=== PATIENT | female | born 1930 | race Caucasian/White ===

== ENCOUNTER 2018-09-19 18:26 | Emergency (ER) | payer MEDICARE, BC ==
--- NOTE | 2018-09-19 19:57 | EDM.PDOC ---
ED HPI GENERAL MEDICAL PROBLEM - General Stated Complaint: HEADACHE,DISORIENTATED Time Seen by Provider: 09/19/18 18:42 Source of Information: Reports: Patient, Family History Limitations: Reports: No Limitations - History of Present Illness INITIAL COMMENTS - FREE TEXT/NARRATIVE: 87 y.o.w.f with a H/O cardiac arrest 20 years ago-since that time on Coumadin- came to the ed because of intermittent word finding difficulties and confusion, which is a new event. Those symptoms started at 2 pm today. No N/V/D, No ataxia , Pt was walking to the ED with a walker. FN test nl No other acute medical issue BP 204/83 RR 18 Pulse ox 96% on RA Temp 36.8 Puls 72 Onset Date: 09/19/18 Onset Time: 14:00 Duration: Hour(s):, Intermittent Location: Reports: Head Quality: Reports: Other (word finding difficulties) Improves with: Reports: None Worsens with: Reports: None Context: Reports: Other (pt was on the phone with somebody at 2 pm and could not find the "right worse and was confused" lasting seconds. ) Frontal headache Pain Score (Numeric/FACES): 3 - Related Data Allergies Allergy/AdvReac Type Severity Reaction Status Date / Time No Known Allergies Allergy Verified 09/19/18 19:07 Home Meds: Home Meds Losartan [Cozaar] 25 mg PO DAILY 09/19/18 [History] Metoprolol Succinate [Toprol XL] 200 mg PO DAILY 09/19/18 [History] Multivitamin [Multivitamins] 1 each PO DAILY 09/19/18 [History] Oxybutynin [Oxybutynin ER] 10 mg PO DAILY 09/19/18 [History] Warfarin Sodium [Jantoven] 5 mg MOWETHFR 09/19/18 [History] Warfarin Sodium [Jantoven] 7.5 mg SUTUSA 09/19/18 [History] ED ROS GENERAL - Review of Systems Review Of Systems: See Below Constitutional: Reports: No Symptoms HEENT: Reports: No Symptoms Respiratory: Reports: No Symptoms Cardiovascular: Reports: No Symptoms Endocrine: Reports: No Symptoms GI/Abdominal: Reports: No Symptoms : Reports: No Symptoms Musculoskeletal: Reports: No Symptoms Skin: Reports: No Symptoms Neurological: Reports: Trouble Speaking (word finding difficulties ), Change in Speech Psychiatric: Reports: No Symptoms Hematologic/Lymphatic: Reports: No Symptoms Immunologic: Reports: No Symptoms ED EXAM, NEURO - Physical Exam Exam: See Below Exam Limited By: No Limitations General Appearance: Alert, WD/WN, Mild Distress Eye Exam: Bilateral Eye: Normal Inspection Ears: Normal External Exam Nose: Normal Inspection, Normal Mucosa Throat/Mouth: Normal Inspection, Normal Lips, Normal Voice, No Airway Compromise Head Exam: Atraumatic, Normocephalic Neck: Normal Inspection, Supple, Non-Tender, Full Range of Motion Respiratory/Chest: No Respiratory Distress, Lungs Clear, Normal Breath Sounds, No Accessory Muscle Use, Chest Non-Tender Cardiovascular: Normal Peripheral Pulses, Regular Rate, Rhythm GI/Abdominal: Normal Bowel Sounds, Soft, Non-Tender, No Organomegaly (Female) Exam: Deferred Rectal (Female) Exam: Deferred Neurological: Alert, Normal Mood/Affect, Normal Dorsiflexion, CN II-XII Intact, Normal Plantar Flexion, Normal Reflexes, Abnormal Gait (walks with walker) Back Exam: Normal Inspection, Full Range of Motion Extremities: Normal Inspection, Normal Range of Motion, Normal Capillary Refill Psychiatric: Normal Affect, Normal Mood Skin Exam: Warm, Dry, Intact, Normal Color, No Rash EKG INTERPRETATION EKG Date: 09/19/18 Time: 21:00 Rhythm: NSR Rate (Beats/Min): 72 [place]: Normal P-Wave: Present QRS: Normal ST-T: Normal QT: Normal Course - Vital Signs Text/Narrative:: 87 y.o.w.f with a H/O cardiac arrest 20 years ago-since that time on Coumadin- came to the ed because of intermittent word finding difficulties and confusion, which is a new event. Those symptoms started at 2 pm today. No N/V/D, No ataxia , Pt was walking to the ED with a walker. FN test nl No other acute medical issue BP 204/83 RR 18 Pulse ox 96% on RA Temp 36.8 Puls 72. DNR/DNI discussed with patient and family PE: WNWD W F with intermittent word finding difficulties since 2 pm today, INR is 4.56 (on Coumadin S/P cardiac arrest) No focal neurological deficit Labs: CBC nl Na 134 K 3.9 GFR > 60 INR 4.56 Imaging: CXR: NAD EKG: NSR Impression: TIA vs CVA, UTI, HTN Tx: Levoquine 8.56 pm Consultation: DR. Jean, Neurologist [facility]: Needs Doppler of the carotis and vertebral vessels and MRI, would accept pt for transfer 9.05 pm Consultation: Dr. Dale, Hospitalist: Accepted the pt for transfere and further care Reexam: improved. BP 143/74 then 183/87 Labetolol (5mg) was given which brought the BP to 163/83 (manual per nurse), EMS was advised to give fentanyl for HTN above SBP 165. Plan: Transfer to [facility] Last Recorded V/S: Last Vital Signs Temp 36.8 C 09/19/18 21:30 Pulse 78 09/19/18 22:45 Resp 18 09/19/18 22:45 BP 162/89 H 09/19/18 22:45 Pulse Ox 99 09/19/18 22:45 - Orders/Labs/Meds Labs: Laboratory Tests 09/19/18 09/19/18 09/19/18 Range/Units 18:55 18:55 18:55 WBC 7.4 (4.5-12.0) X10-3/uL RBC 4.91 (3.23-5.20) x10(6)uL Hgb 15.0 (11.5-15.5) g/dL Hct 44.3 (30.0-51.3) % MCV 90.3 (80-96) fL MCH 30.5 (27.7-33.6) pg MCHC 33.7 (32.2-35.4) g/dL RDW 12.9 (11.5-15.5) % Plt Count 199 (125-369) X10(3)uL MPV 8.2 (7.4-10.4) fL Neut % (Auto) 81.3 (46-82) % Lymph % (Auto) 8.6 L (13-37) % [place] % (Auto) 7.0 (4-12) % Eos % (Auto) 3 (1.0-5.0) % Baso % (Auto) 0 (0-2) % Neut # (Auto) 6.1 (1.6-8.3) # Lymph # (Auto) 0.6 (0.6-5.0) # [place] # (Auto) 0.5 (0.0-1.3) # Eos # (Auto) 0.2 (0.0-0.8) # Baso # (Auto) 0.0 (0.0-0.2) # PT 43.6 H* (8.7-11.1) INR 4.56 H* (0.89-1.13) Sodium 134 L (135-145) mmol/L Potassium 3.9 (3.5-5.3) mmol/L Chloride 97 L (100-110) mmol/L Carbon Dioxide 31 (21-32) mmol/L BUN 17 (7-18) mg/dL Creatinine 0.7 (0.55-1.02) mg/dL Est Cr Clr Drug Dosing 56.10 mL/min Estimated GFR (MDRD) > 60 (>60) BUN/Creatinine Ratio 24.3 H (9-20) Glucose 125 H (80-116) mg/dL Lactic Acid (0.4-2.2) mmol/L Calcium 9.6 (8.6-10.2) mg/dL Urine Color (YELLOW) Urine Appearance (CLEAR) Urine pH (5.0-6.5) Ur Specific [place] (1.010-1.025) Urine Protein (NEGATIVE) mg/dL Urine Glucose (UA) (NEGATIVE) mg/dL Urine Ketones (NEGATIVE) mg/dL Urine Occult Blood (NEGATIVE) Urine Nitrite (NEGATIVE) Urine Bilirubin (NEGATIVE) Urine Urobilinogen (NEGATIVE) mg/dL Ur Leukocyte Esterase (NEGATIVE) Urine RBC (0) Urine WBC (0) Ur Squamous Epith Cells (NS,R,O) Urine Bacteria (NS) 09/19/18 09/19/18 Range/Units 18:55 20:36 WBC (4.5-12.0) X10-3/uL RBC (3.23-5.20) x10(6)uL Hgb (11.5-15.5) g/dL Hct (30.0-51.3) % MCV (80-96) fL MCH (27.7-33.6) pg MCHC (32.2-35.4) g/dL RDW (11.5-15.5) % Plt Count (125-369) X10(3)uL MPV (7.4-10.4) fL Neut % (Auto) (46-82) % Lymph % (Auto) (13-37) % [place] % (Auto) (4-12) % Eos % (Auto) (1.0-5.0) % Baso % (Auto) (0-2) % Neut # (Auto) (1.6-8.3) # Lymph # (Auto) (0.6-5.0) # [place] # (Auto) (0.0-1.3) # Eos # (Auto) (0.0-0.8) # Baso # (Auto) (0.0-0.2) # PT (8.7-11.1) INR (0.89-1.13) Sodium (135-145) mmol/L Potassium (3.5-5.3) mmol/L Chloride (100-110) mmol/L Carbon Dioxide (21-32) mmol/L BUN (7-18) mg/dL Creatinine (0.55-1.02) mg/dL Est Cr Clr Drug Dosing mL/min Estimated GFR (MDRD) (>60) BUN/Creatinine Ratio (9-20) Glucose (80-116) mg/dL Lactic Acid 1.4 (0.4-2.2) mmol/L Calcium (8.6-10.2) mg/dL Urine Color Yellow (YELLOW) Urine Appearance Slightly cloudy (CLEAR) Urine pH 7.0 H (5.0-6.5) Ur Specific [place] 1.010 (1.010-1.025) Urine Protein Negative (NEGATIVE) mg/dL Urine Glucose (UA) Normal (NEGATIVE) mg/dL Urine Ketones Negative (NEGATIVE) mg/dL Urine Occult Blood Large H (NEGATIVE) Urine Nitrite Positive H (NEGATIVE) Urine Bilirubin Negative (NEGATIVE) Urine Urobilinogen Normal (NEGATIVE) mg/dL Ur Leukocyte Esterase Moderate H (NEGATIVE) Urine RBC 20-30 H (0) Urine WBC 30-40 H (0) Ur Squamous Epith Cells Few H (NS,R,O) Urine Bacteria Many H (NS) Meds: Medications Discontinued Medications Generic Name Dose Route Start Last Admin Trade Name Freq PRN Reason Stop Dose Admin Labetalol HCl 5 mg 09/19/18 22:22 09/19/18 22:26 Normodyne IVPUSH 09/19/18 22:23 5 mg ONETIME ONE Administration Protocol Levofloxacin 500 mg 09/19/18 21:01 09/19/18 21:27 Levaquin PO 09/19/18 21:02 500 mg ONETIME ONE Administration Sodium Chloride 10 ml 09/19/18 22:07 09/19/18 22:12 Saline Flush FLUSH 10 ml ASDIRECTED PRN Administration Keep Vein Open Departure - Departure Time of Disposition: 22:00 Disposition: DC/Tfer to Acute Hospital 02 Condition: Fair Clinical Impression: TIA (transient ischemic attack) - Discharge Information Referrals: Jack Shukla MD [Primary Care Provider] - Forms: ED Department Discharge
[2018-09-19] MEDS ORDERED: Levofloxacin 500 MG Tab PO ONE (21:01)
[2018-09-19] MEDS ORDERED: Sodium Chloride 0.9% 10 ML Syringe FLUSH PRN (22:07)
[2018-09-19] MEDS ORDERED: Labetalol 20 MG/4 ML Syringe IVPUSH ONE (22:22)
== END 2018-09-19 22:50 ==
LOC: FB.ED 18:26
DX: G45.9 Transient cerebral ischemic attack, unspecified (principal); I10 Essential (primary) hypertension; N39.0 Urinary tract infection, site not specified; Z79.899 Other long term (current) drug therapy
CPT/HCPCS: 36415; 70450; 71045; 80048; 81001; 83605; 85025; 85610; 87086; 87088; 87186; 93005; 93010; 96374; 99285; A9270; J3490

== ENCOUNTER 2019-03-18 16:59 | Emergency (ER) | payer MEDICARE, BC ==
[2019-03-18] MEDS ORDERED: Sodium Chloride 0.9% 10 ML Syringe FLUSH PRN (17:34)
[2019-03-18] MEDS ORDERED: Sodium Chloride 0.9% 1,000 ML IV ONE (17:43)
--- NOTE | 2019-03-18 17:49 | EDM.PDOC ---
ED HPI GENERAL MEDICAL PROBLEM - General Chief Complaint: Syncope Stated Complaint: FALL Time Seen by Provider: 03/18/19 17:44 Source of Information: Reports: Patient, EMS, Family History Limitations: Reports: No Limitations - History of Present Illness INITIAL COMMENTS - FREE TEXT/NARRATIVE: Patient had a ground level fall sometime last night at home and was found by family laying on the floor surrounded by stool and urine today at 1600. Patient doesn't remember the circumstances of the fall, but states she was unable to get up, she lives alone. Denies focal weakness, headache, neck pain, cough, chest pain, fevers, chills, abdominal pain, pelvic pain or extremity pain. Onset Date: 03/17/19 - Related Data Allergies Allergy/AdvReac Type Severity Reaction Status Date / Time No Known Allergies Allergy Verified 03/18/19 18:07 Home Meds: Home Meds Losartan [Cozaar] 25 mg PO DAILY 09/19/18 [History] Metoprolol Succinate [Toprol XL] 200 mg PO DAILY 09/19/18 [History] Multivitamin [Multivitamins] 1 each PO DAILY 09/19/18 [History] Oxybutynin [Oxybutynin ER] 10 mg PO DAILY 09/19/18 [History] Warfarin Sodium [Jantoven] 5 mg MOWETHFR 09/19/18 [History] Warfarin Sodium [Jantoven] 7.5 mg SUTUSA 09/19/18 [History] Past Medical History Cardiovascular History: Reports: Blood Clots/VTE/DVT, Hypertension, Prior Cardiac Arrest. 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: Endocrine/Metabolic History: Reports: Obesity/BMI 30+ Hematologic History: Reports: Anticoagulation Therapy Dermatologic History: Reports: Eczema - Infectious Disease History Infectious Disease History: Reports: Chicken Pox, Measles - Past Surgical History HEENT Surgical History: Reports: Adenoidectomy, Cataract Surgery, Eye Surgery, Tonsillectomy Other HEENT Surgeries/Procedures: bilat cataract, bilat cornera transplant GI Surgical History: Reports: Appendectomy, Cholecystectomy, Colonoscopy Female Surgical History: Reports: Hysterectomy, Salpingo-Oophorectomy Endocrine Surgical History: Reports: None Musculoskeletal Surgical History: Reports: Knee Replacement Other Musculoskeletal Surgeries/Procedures:: bilat knee replacement Social & Family History - Family History Family Medical History: Noncontributory - Tobacco Use Smoking Status *Q: Never Smoker - Caffeine Use Caffeine Use: Reports: Coffee - Alcohol Use Alcohol Use History: No ED ROS GENERAL - Review of Systems Review Of Systems: ROS reveals no pertinent complaints other than HPI. - Physical Exam Exam: See Below Exam Limited By: No Limitations General Appearance: Alert, WD/WN, No Apparent Distress Ears: Normal External Exam Nose: Normal Inspection Throat/Mouth: Other (dry oropharynx) Head Exam: Normocephalic, Other (small ecchymosis to forehead) Neck: Non-Tender Respiratory/Chest: No Respiratory Distress, Lungs Clear, Normal Breath Sounds Cardiovascular: Regular Rate, Rhythm, No Murmur, No Rub GI/Abdominal: Soft, Non-Tender Neuro Exam (Abbreviated): Alert, CN II-XII Intact, Normal Cognition, No Motor/ Sensory Deficits, Other (GCS 15, non focal exam) Back Exam: Full Range of Motion, Other (mild erythema to bilateral buttocks) Extremities: Normal Range of Motion, Normal Capillary Refill, Other (ecchymosis and mild tenderness to dorsum of right foot) Psychiatric: Normal Affect, Normal Mood Skin Exam: Warm, Dry, Intact EKG INTERPRETATION EKG Date: 03/18/19 Time: 18:15 Rhythm: NSR Rate (Beats/Min): 86 [place]: Normal P-Wave: Present QRS: Normal ST-T: Normal QT: Normal Comparison: No Change (09/19/18) Course - Vital Signs Last Recorded V/S: Last Vital Signs Temp 37.6 C 03/18/19 16:59 Pulse 94 03/18/19 16:59 Resp 18 03/18/19 16:59 BP 162/111 H 03/18/19 16:59 Pulse Ox 99 03/18/19 16:59 - Orders/Labs/Meds Orders: Active Orders 24 hr Category Date Time Status EKG Documentation Completion [RC] ASDIRECTED Care 03/18/19 17:30 Active Mohan Catheter Insertion [Insert Urinary Catheter] [OM. Care 03/18/19 18:00 Ordered PC] Q24H Urinary Catheter Assessment [RC] QSHIFT Care 03/18/19 17:49 Active CXR [Chest 1V Frontal] [CR] Stat Exams 03/18/19 17:47 Taken Cervical Spine wo Cont [CT] Stat Exams 03/18/19 17:30 Taken Foot Comp Min 3V Rt [CR] Stat Exams 03/18/19 17:52 Taken Head wo Cont [CT] Stat Exams 03/18/19 17:30 Taken CULTURE BLOOD [BC] Urgent Lab 03/18/19 17:10 Received CULTURE BLOOD [BC] Urgent Lab 03/18/19 17:20 Results CULTURE URINE [RM] Stat Lab 03/18/19 18:30 Received Aspirin Med 03/18/19 18:45 Active 162 mg PO DAILY Sodium Chloride 0.9% [Normal Saline] 1,000 ml Med 03/18/19 17:43 Active IV .BOLUS Sodium Chloride 0.9% [Saline Flush] Med 03/18/19 17:34 Active 10 ml FLUSH ASDIRECTED PRN Blood Culture x2 Reflex Set [OM.PC] Urgent Oth 03/18/19 17:30 Ordered Saline Lock Insert [OM.PC] Routine Oth 03/18/19 17:34 Ordered EKG 12 Lead [EK] Stat Ther 03/18/19 17:29 Ordered Medication Orders Aspirin (Aspirin) 162 mg PO DAILY COURTNEY Last Admin: 03/18/19 18:40 Dose: 162 mg Sodium Chloride (Normal Saline) 1,000 mls @ 500 mls/hr IV .BOLUS ONE Stop: 03/18/19 19:42 Last Admin: 03/18/19 18:45 Dose: 500 mls/hr Sodium Chloride (Saline Flush) 10 ml FLUSH ASDIRECTED PRN PRN Reason: Keep Vein Open Labs: Laboratory Tests 03/18/19 03/18/19 03/18/19 Range/Units 17:10 17:10 17:10 WBC 10.6 (4.5-12.0) X10-3/uL RBC 4.77 (3.23-5.20) x10(6)uL Hgb 14.3 (11.5-15.5) g/dL Hct 42.6 (30.0-51.3) % MCV 89.4 (80-96) fL MCH 30.0 (27.7-33.6) pg MCHC 33.6 (32.2-35.4) g/dL RDW 12.9 (11.5-15.5) % Plt Count 174 (125-369) X10(3)uL MPV 8.7 (7.4-10.4) fL Neut % (Auto) 82.8 H (46-82) % Lymph % (Auto) 4.6 L (13-37) % [place] % (Auto) 9.4 (4-12) % Eos % (Auto) 0 L (1.0-5.0) % Baso % (Auto) 3 H (0-2) % Neut # (Auto) 8.8 H (1.6-8.3) # Lymph # (Auto) 0.5 L (0.6-5.0) # [place] # (Auto) 1.0 (0.0-1.3) # Eos # (Auto) 0.0 (0.0-0.8) # Baso # (Auto) 0.3 H (0.0-0.2) # PT 14.3 H (8.7-11.1) INR 1.48 H (0.89-1.13) APTT (24.4-33.2) SECONDS Sodium 138 (135-145) mmol/L Potassium 3.1 L (3.5-5.3) mmol/L Chloride 100 (100-110) mmol/L Carbon Dioxide 28 (21-32) mmol/L BUN 17 (7-18) mg/dL Creatinine 0.7 (0.55-1.02) mg/dL Est Cr Clr Drug Dosing 55.06 mL/min Estimated GFR (MDRD) > 60 (>60) BUN/Creatinine Ratio 24.3 H (9-20) Glucose 140 H (80-116) mg/dL Lactic Acid (0.4-2.2) mmol/L Calcium 8.8 (8.6-10.2) mg/dL Total Bilirubin 1.9 H (0.1-1.3) mg/dL AST 138 H (5-25) IU/L ALT 60 H (12-36) U/L Alkaline Phosphatase 55 L (56-112) IU/L Creatine Kinase 5183 H* (60-160) IU/L Troponin I (<0.017-0.056) ng/mL Total Protein 6.7 (6.0-8.0) g/dL Albumin 3.4 (3.2-4.6) g/dL Globulin 3.3 g/dL Albumin/Globulin Ratio 1.0 Urine Color (YELLOW) Urine Appearance (CLEAR) Urine pH (5.0-6.5) Ur Specific [place] (1.010-1.025) Urine Protein (NEGATIVE) mg/dL Urine Glucose (UA) (NORMAL) mg/dL Urine Ketones (NEGATIVE) mg/dL Urine Occult Blood (NEGATIVE) Urine Nitrite (NEGATIVE) Urine Bilirubin (NEGATIVE) Urine Urobilinogen (NEGATIVE) mg/dL Ur Leukocyte Esterase (NEGATIVE) Urine RBC (0-5) Urine WBC (0-5) Ur Squamous Epith Cells (NS,R,O) Urine Bacteria (NS) 03/18/19 03/18/19 03/18/19 Range/Units 17:10 17:10 17:10 WBC (4.5-12.0) X10-3/uL RBC (3.23-5.20) x10(6)uL Hgb (11.5-15.5) g/dL Hct (30.0-51.3) % MCV (80-96) fL MCH (27.7-33.6) pg MCHC (32.2-35.4) g/dL RDW (11.5-15.5) % Plt Count (125-369) X10(3)uL MPV (7.4-10.4) fL Neut % (Auto) (46-82) % Lymph % (Auto) (13-37) % [place] % (Auto) (4-12) % Eos % (Auto) (1.0-5.0) % Baso % (Auto) (0-2) % Neut # (Auto) (1.6-8.3) # Lymph # (Auto) (0.6-5.0) # [place] # (Auto) (0.0-1.3) # Eos # (Auto) (0.0-0.8) # Baso # (Auto) (0.0-0.2) # PT (8.7-11.1) INR (0.89-1.13) APTT 27.8 (24.4-33.2) SECONDS Sodium (135-145) mmol/L Potassium (3.5-5.3) mmol/L Chloride (100-110) mmol/L Carbon Dioxide (21-32) mmol/L BUN (7-18) mg/dL Creatinine (0.55-1.02) mg/dL Est Cr Clr Drug Dosing mL/min Estimated GFR (MDRD) (>60) BUN/Creatinine Ratio (9-20) Glucose (80-116) mg/dL Lactic Acid 1.5 (0.4-2.2) mmol/L Calcium (8.6-10.2) mg/dL Total Bilirubin (0.1-1.3) mg/dL AST (5-25) IU/L ALT (12-36) U/L Alkaline Phosphatase (56-112) IU/L Creatine Kinase (60-160) IU/L Troponin I 0.209 H* (<0.017-0.056) ng/mL Total Protein (6.0-8.0) g/dL Albumin (3.2-4.6) g/dL Globulin g/dL Albumin/Globulin Ratio Urine Color (YELLOW) Urine Appearance (CLEAR) Urine pH (5.0-6.5) Ur Specific [place] (1.010-1.025) Urine Protein (NEGATIVE) mg/dL Urine Glucose (UA) (NORMAL) mg/dL Urine Ketones (NEGATIVE) mg/dL Urine Occult Blood (NEGATIVE) Urine Nitrite (NEGATIVE) Urine Bilirubin (NEGATIVE) Urine Urobilinogen (NEGATIVE) mg/dL Ur Leukocyte Esterase (NEGATIVE) Urine RBC (0-5) Urine WBC (0-5) Ur Squamous Epith Cells (NS,R,O) Urine Bacteria (NS) 03/18/19 Range/Units 18:30 WBC (4.5-12.0) X10-3/uL RBC (3.23-5.20) x10(6)uL Hgb (11.5-15.5) g/dL Hct (30.0-51.3) % MCV (80-96) fL MCH (27.7-33.6) pg MCHC (32.2-35.4) g/dL RDW (11.5-15.5) % Plt Count (125-369) X10(3)uL MPV (7.4-10.4) fL Neut % (Auto) (46-82) % Lymph % (Auto) (13-37) % [place] % (Auto) (4-12) % Eos % (Auto) (1.0-5.0) % Baso % (Auto) (0-2) % Neut # (Auto) (1.6-8.3) # Lymph # (Auto) (0.6-5.0) # [place] # (Auto) (0.0-1.3) # Eos # (Auto) (0.0-0.8) # Baso # (Auto) (0.0-0.2) # PT (8.7-11.1) INR (0.89-1.13) APTT (24.4-33.2) SECONDS Sodium (135-145) mmol/L Potassium (3.5-5.3) mmol/L Chloride (100-110) mmol/L Carbon Dioxide (21-32) mmol/L BUN (7-18) mg/dL Creatinine (0.55-1.02) mg/dL Est Cr Clr Drug Dosing mL/min Estimated GFR (MDRD) (>60) BUN/Creatinine Ratio (9-20) Glucose (80-116) mg/dL Lactic Acid (0.4-2.2) mmol/L Calcium (8.6-10.2) mg/dL Total Bilirubin (0.1-1.3) mg/dL AST (5-25) IU/L ALT (12-36) U/L Alkaline Phosphatase (56-112) IU/L Creatine Kinase (60-160) IU/L Troponin I (<0.017-0.056) ng/mL Total Protein (6.0-8.0) g/dL Albumin (3.2-4.6) g/dL Globulin g/dL Albumin/Globulin Ratio Urine Color Yellow (YELLOW) Urine Appearance Cloudy (CLEAR) Urine pH 6.0 (5.0-6.5) Ur Specific [place] 1.010 (1.010-1.025) Urine Protein 30 H (NEGATIVE) mg/dL Urine Glucose (UA) Normal (NORMAL) mg/dL Urine Ketones 15 H (NEGATIVE) mg/dL Urine Occult Blood Large H (NEGATIVE) Urine Nitrite Negative (NEGATIVE) Urine Bilirubin Negative (NEGATIVE) Urine Urobilinogen Normal (NEGATIVE) mg/dL Ur Leukocyte Esterase Large H (NEGATIVE) Urine RBC 30-40 H (0-5) Urine WBC >100 H (0-5) Ur Squamous Epith Cells Occasional (NS,R,O) Urine Bacteria Many H (NS) Meds: Medications Generic Name Dose Route Start Last Admin Trade Name Freq PRN Reason Stop Dose Admin Aspirin 162 mg 03/18/19 18:45 03/18/19 18:40 Aspirin PO 162 mg DAILY COURTNEY Administration Sodium Chloride 1,000 mls @ 500 mls/hr 03/18/19 17:43 03/18/19 18:45 Normal Saline IV 03/18/19 19:42 500 mls/hr .BOLUS ONE Administration Sodium Chloride 10 ml 03/18/19 17:34 Saline Flush FLUSH ASDIRECTED PRN Keep Vein Open Discontinued Medications Generic Name Dose Route Start Last Admin Trade Name Freq PRN Reason Stop Dose Admin Ceftriaxone Sodium 1 gm 03/18/19 18:48 03/18/19 18:54 Rocephin IVPUSH 03/18/19 18:49 1 gm .ONCE ONE Administration Potassium Chloride 40 meq 03/18/19 18:51 Klor-Con M20 PO 03/18/19 18:52 ONETIME ONE - Radiology Interpretation Free Text/Narrative:: CT Head: No acute process (interpreted by Consulting Radiologists). CT C-spine: No acute process (interpreted by Consulting Radiologists). CXR: No acute process (ED provider interpretation). Right Foot XR: No acute process (ED provider interpretation). - Re-Assessments/Exams Free Text/Narrative Re-Assessment/Exam: 03/18/19 19:00 Troponin I elevated at 0.209. CK 5183. EKG normal. Differential diagnosis of elevated Troponin is ACS vs rhabdomyolysis. Patient given: ASA 162 mg PO, Normal saline 500 ml/hr x 1L, Rocephin 1g IV, and KCl 40 mEq PO. Family requests transfer to [facility]. Patient is a full code. Dr. Lyles accepts transfer to [facility], recommends no further anticoagulation. Departure - Departure Time of Disposition: 19:06 Disposition: DC/Tfer to Acute Hospital 02 Condition: Fair Clinical Impression: Elevated troponin I level Rhabdomyolysis Qualifiers: Rhabdomyolysis type: traumatic Encounter type: initial encounter Qualified Code (s): T79.6XXA - Traumatic ischemia of muscle, initial encounter UTI (urinary tract infection) Qualifiers: Urinary tract infection type: acute cystitis Hematuria presence: with hematuria Qualified Code(s): N30.01 - Acute cystitis with hematuria - Discharge Information Referrals: Jack Shukla MD [Primary Care Provider] - Forms: ED Department Discharge - My Orders Last 24 Hours: My Active Orders 03/18/19 17:10 CULTURE BLOOD [BC] Urgent 03/18/19 17:20 CULTURE BLOOD [BC] Urgent 03/18/19 17:29 EKG 12 Lead [EK] Stat 03/18/19 17:30 EKG Documentation Completion [RC] ASDIRECTED Cervical Spine wo Cont [CT] Stat Head wo Cont [CT] Stat Blood Culture x2 Reflex Set [OM.PC] Urgent 03/18/19 17:34 Sodium Chloride 0.9% [Saline Flush] 10 ml FLUSH ASDIRECTED PRN Saline Lock Insert [OM.PC] Routine 03/18/19 17:43 Sodium Chloride 0.9% [Normal Saline] 1,000 ml IV .BOLUS 03/18/19 17:47 CXR [Chest 1V Frontal] [CR] Stat 03/18/19 17:49 Urinary Catheter Assessment [RC] QSHIFT 03/18/19 17:52 Foot Comp Min 3V Rt [CR] Stat 03/18/19 18:00 Mohan Catheter Insertion [Insert Urinary Catheter] [OM.PC] Q24H 03/18/19 18:30 CULTURE URINE [RM] Stat 03/18/19 18:45 Aspirin 162 mg PO DAILY - Assessment/Plan Last 24 Hours: My Active Orders 03/18/19 17:10 CULTURE BLOOD [BC] Urgent 03/18/19 17:20 CULTURE BLOOD [BC] Urgent 03/18/19 17:29 EKG 12 Lead [EK] Stat 03/18/19 17:30 EKG Documentation Completion [RC] ASDIRECTED Cervical Spine wo Cont [CT] Stat Head wo Cont [CT] Stat Blood Culture x2 Reflex Set [OM.PC] Urgent 03/18/19 17:34 Sodium Chloride 0.9% [Saline Flush] 10 ml FLUSH ASDIRECTED PRN Saline Lock Insert [OM.PC] Routine 03/18/19 17:43 Sodium Chloride 0.9% [Normal Saline] 1,000 ml IV .BOLUS 03/18/19 17:47 CXR [Chest 1V Frontal] [CR] Stat 03/18/19 17:49 Urinary Catheter Assessment [RC] QSHIFT 03/18/19 17:52 Foot Comp Min 3V Rt [CR] Stat 03/18/19 18:00 Mohan Catheter Insertion [Insert Urinary Catheter] [OM.PC] Q24H 03/18/19 18:30 CULTURE URINE [RM] Stat 03/18/19 18:45 Aspirin 162 mg PO DAILY
[2019-03-18] MEDS ORDERED: Aspirin 81 MG Tab.Chew PO SCH (18:45)
[2019-03-18] MEDS ORDERED: cefTRIAXone 1 GM Vial IVPUSH ONE (18:48)
[2019-03-18] MEDS ORDERED: Potassium Chloride 20 MEQ Tab.ER PO ONE (18:51)
--- NOTE | 2019-03-19 11:58 | CR ---
INDICATION: Fall. CHEST: An AP upright view of the chest was obtained 03/18/19 and compared with 09/19/18 and 01/12/13. The heart remains normal in size and shape. The aorta is tortuous with calcification in the arch. An definite active infiltrate or effusion was not identified; however, there is some minimal indistinctness at the left hemidiaphragm and minimal blunting of the left costophrenic angle, raising question of minimal pneumonia and pleuritis or even contusion in that area. This should be correlated clinically. IMPRESSION: 1. No definite acute process but cannot exclude minimal pneumonia and/or contusion at the left costophrenic angle - lung base. 2. ASD aorta. MTDD
--- NOTE | 2019-03-19 12:45 | CR ---
INDICATION: Injury. RIGHT FOOT: Three views of the right foot revealed degenerative changes at the talonavicular joint of mild degree with moderate degenerative changes at the navicular cuneiform joints medially. There are also mild degenerative changes at the interphalangeal joint of the great toe and DIPJs of the second and third toes and also possibly the fourth and fifth to a lesser extent. There are some degenerative changes also at the PIPJ of the fourth toe. These are of moderate degree. There are also noted degenerative changes at the first metatarsotarsal joint as well as the fifth metatarsotarsal joint and at the calcaneocuboid joint as well. Calf artery calcifications and pedal artery calcifications are also noted. A definite acute fracture or dislocation was not seen. IMPRESSION: 1. No definite acute fracture or dislocation. 2. Osteoarthritis. 3. ASD. MTDD
== END 2019-03-18 20:02 ==
LOC: FB.ED 16:59
DX: T79.6XXA Traumatic ischemia of muscle, initial encounter (principal); S90.31XA Contusion of right foot, initial encounter; S00.83XA Contusion of other part of head, initial encounter; L53.9 Erythematous condition, unspecified; N30.01 Acute cystitis with hematuria; R79.89 Other specified abnormal findings of blood chemistry; I10 Essential (primary) hypertension; E66.9 Obesity, unspecified; W18.30XA Fall on same level, unspecified, initial encounter; Z79.01 Long term (current) use of anticoagulants; Z68.31 Body mass index [BMI] 31.0-31.9, adult
CPT/HCPCS: 36415; 70450; 71045; 72125; 73630-RT; 80053; 81001; 82550; 83605; 84484; 85025; 85610; 85730; 87040; 87086; 87088; 87186; 93005; 96361; 96374; 99284-25; A9270-GY; J0696; J7030